=== PATIENT | male | born 1965 | race Caucasian/White ===

== ENCOUNTER → 2020-09-24 10:30 | Outpatient (CLI) | payer OTHER, SELFPAY ==
[2020-09-24] MEDS: COVID-19 VACC, Ad26(JANSSEN)/PF 0.5 ML IM (10:44)
== END ==
PROVIDERS: Visit Provider Internal Medicine
DX: Z23 Encounter for immunization (principal)
CPT/HCPCS: 0031A; 91303

== ENCOUNTER → 2021-08-10 10:53 | Outpatient (CLI) | payer OTHER, SELFPAY ==
--- NOTE | 2021-08-10 10:58 | DI.RAD.S_ITS ---
PROCEDURE: XR SHOULDER RT MIN 2V INDICATIONS: shoulder pain TECHNIQUE: 3 views of the shoulder were acquired. COMPARISON: None. FINDINGS: Bones: No fractures or dislocations. No suspicious bony lesions. Visualized ribs appear intact. Moderate acromioclavicular degenerative narrowing is present. Slight inferiorly subluxed appearance of the humeral head in relation to the glenohumeral joint. Soft tissues: No suspicious soft tissue calcifications. IMPRESSION: Moderate acromioclavicular narrowing. Dictated by: Yasmine Melendrez M.D. on 08/10/2021 at 11:27 Approved by: Yasmine Melendrez M.D. on 08/10/2021 at 11:28
== END ==
PROVIDERS: PCP Family Medicine; Referring Provider Physician Assistant; Visit Provider Physician Assistant
DX: M25.511 Pain in right shoulder (principal)
CPT/HCPCS: 73030

== ENCOUNTER → 2021-11-20 11:57 | Outpatient (CLI) | payer OTHER, SELFPAY ==
--- NOTE | 2021-11-20 | DI.MRI.S_ITS ---
PROCEDURE: MR SHOULDER RT WO CON INDICATIONS: RT SHOULDER TTP TECHNIQUE: Noncontrast oblique coronal T2 fast spin echo with fat saturation, oblique sagittal T1 spin echo and T2 fast spin echo with fat saturation, axial T1 spin echo and T2 fast spin echo with fat saturation through the shoulder. COMPARISON: [facility], CR, XR SHOULDER RT MIN 2V, 08/10/2021, 11:03. FINDINGS: Image quality: Excellent. Rotator cuff: Advanced supraspinatus tendinopathy with friable appearance of the tendon and full-thickness tear measuring approximately 3.9 x 8.9 mm. Moderate infraspinatus tendinopathy with small, partial articular surface tear. Moderate subscapularis tendinopathy with interstitial tear as well as partial, articular surface tear. Grade 1/2 atrophy of the supraspinatus muscle. Bones and bursae: No evidence of fracture. Foci of T2 hyperintense signal in the subchondral humeral head, which may reflect fibrocystic change. [id number] acromioclavicular joint degeneration. No os acromiale. Small amount of subacromial-subdeltoid fluid is present. Capsule and soft tissues: Linear T2 signal in the posterior labrum, compatible with labral tear (6-14). The long head of the biceps tendon demonstrates normal location and mild tendinopathy. The coracohumeral ligament is normal in thickness. IMPRESSION: 1. Advanced supraspinatus tendinopathy with full-thickness tear as detailed above. 2. Moderate infraspinatus tendinopathy with small, partial articular surface tear. 3. Moderate subscapularis tendinopathy with interstitial as well as partial, articular surface tear. 4. Biceps tendinopathy. 5. Posterior labral tear. 6. Small amount of subacromial/subdeltoid fluid, which may reflect bursitis or joint fluid. Dictated by: You Celestin M.D. on 11/20/2021 at 14:50 Approved by: You Celestin M.D. on 11/20/2021 at 15:11
== END ==
PROVIDERS: PCP Family Medicine; Referring Provider Nurse Practitioner Family; Visit Provider Nurse Practitioner Family
DX: S46.011A Strain of muscle(s) and tendon(s) of the rotator cuff of right shoulder, initial encounter (principal); S43.491A Other sprain of right shoulder joint, initial encounter; X58.XXXA Exposure to other specified factors, initial encounter
CPT/HCPCS: 73221

== ENCOUNTER → 2022-07-30 10:43 | Outpatient (CLI) | payer OTHER, SELFPAY ==
--- NOTE | 2022-07-30 | DI.MRI.S_ITS ---
PROCEDURE: MR SHOULDER RT W CON INDICATIONS: RIGHT SHOULDER PAIN TECHNIQUE: After the administration of 12 mL of dilute intra-articular Gadolinium contrast, oblique coronal T1 and T2 spin echo with fat saturation, oblique sagittal T1 spin echo with and without fat saturation, oblique sagittal T2 fast spin echo with fat saturation, axial T1 spin echo with fat saturation through the shoulder. COMPARISON: None. FINDINGS: Image quality: Excellent. Rotator cuff: Postsurgical changes are noted from prior rotator cuff tendon repair. There is moderate to high-grade articular surface partial-thickness tear involving anterior to mid fibers of distal supraspinatus at its insertion on the humeral head extending to musculotendinous junction. Distal infraspinatus tendinosis and low-grade articular surface partial-thickness tear is also seen. Distal subscapularis tendinosis is seen. No full-thickness rotator cuff tendon rupture. Mild to moderate supraspinatus muscle atrophy is seen on sagittal images. Bones and bursae: Postsurgical changes are noted in greater tuberosity of humeral head. No acute fracture or dislocation. Moderate acromioclavicular joint osteoarthritic changes are seen with significant joint space narrowing, subchondral sclerosis and downward osteophyte formation depressing the musculotendinous junction of supraspinatus. Mild glenohumeral joint osteoarthritic changes are seen. Capsule and soft tissues: There is subtle signal abnormality, contour irregularity and contrast extension in posterior superior labrum at 10 to 11 o'clock position. The glenohumeral ligaments appear intact. The long head of the biceps tendon is not visualized intra-articularly. The rotator interval appears normal, without fibrosis. The coracohumeral ligament is of normal thickness. No intra-articular bodies. IMPRESSION: 1. Prior rotator cuff tendon repair with postsurgical changes. No acute fracture or dislocation. Moderate acromioclavicular joint osteoarthritis. No gross loose bodies. 2. Moderate to high-grade articular surface partial-thickness tear involving distal supraspinatus extending to musculotendinous junction. Distal infraspinatus tendinosis and low-grade articular surface partial-thickness tear. Distal subscapularis tendinosis. No full-thickness rotator cuff tendon rupture. Mild to moderate supraspinatus muscle atrophy. 3. Suggestion of subtle posterior superior labral tear at 10 to 11 o'clock position. 4. Nonvisualization of intra-articular portion of proximal long head of biceps tendon suggestive of proximal biceps tendon tear versus postsurgical changes suggest clinical correlation. Dictated by: Mane Gilmore M.D. on 07/30/2022 at 12:03 Approved by: Mane Gilmore M.D. on 07/30/2022 at 12:12
--- NOTE | 2022-07-30 | DI.RAD.S_ITS ---
PROCEDURE: FL SHOULDER INJECTION MR/CT RT INDICATIONS: RIGHT SHOULDER PAIN COMPARISON: [facility], MR, MR SHOULDER RT WO CON, 11/20/2021, 12:45. [facility], CR, XR SHOULDER RT MIN 2V, 08/10/2021, 11:03. TECHNIQUE: The indications, alternatives, benefits, risks, and complications of the procedure were explained to the patient. Written informed consent was obtained and placed in the chart. The shoulder was examined fluoroscopically and a site for needle placement chosen for entry into the glenohumeral joint from an anterior approach. The skin was prepped and draped in a sterile fashion, and 1% lidocaine infiltrated from skin down to joint capsule. A spinal needle was inserted into the glenohumeral joint, and a small amount of iodinated contrast media injected to confirm intra-articular placement of the needle tip. This was followed by approximately 12 mL dilute solution of a gadolinium containing MR contrast agent. The needle was removed and a dressing was applied. The patient was given postprocedural instructions and sent to the MR suite for MR imaging. FINDINGS: A single fluoroscopic spot image demonstrates intra-articular location of injected iodinated contrast. IMPRESSION: Successful fluoroscopically guided administration of dilute Gadolinium solution into the shoulder joint for MR arthrogram. Dictated by: Adilene Gupta M.D. on 08/02/2022 at 9:58 Approved by: Adilene Gupta M.D. on 08/02/2022 at 9:59
== END ==
PROVIDERS: PCP Family Medicine; Referring Provider Orthopaedic Surgery; Visit Provider Orthopaedic Surgery
DX: S46.011A Strain of muscle(s) and tendon(s) of the rotator cuff of right shoulder, initial encounter (principal); M19.011 Primary osteoarthritis, right shoulder; X58.XXXA Exposure to other specified factors, initial encounter
CPT/HCPCS: 23350; 73222; 77002